=== PATIENT | female | born 1935 | race Two or more races ===

== ENCOUNTER 2024-03-11 08:43 | Inpatient (IN) | payer OTHER ==
[~2024-03-11] VITALS: Ht 149.9 cm; Wt 34.0 kg
--- NOTE | 2024-03-11 09:13 | NUR ---
SE RECIBE PACIENTE ALERTA Y ACTIVA EN COMPANIA DE PARA MEDICOS Y FAMILIAR LOS CULES REFIEREN TRAER A PACIENTE A CAUSA DE NAUSEAS Y VOMITOS. AL MOMENTO DE TRIAGE SE REALIZA JENNIFER DE VITALES, EKG Y SE PRESENTA A MD EN TURNO.
[2024-03-11 09:14] VITALS: BP 65/52
[2024-03-11] MEDS ORDERED: TOPROL XL25 M1 PO (09:18)
[2024-03-11] MEDS ORDERED: SYNTHROID75 MCG PO (09:18)
[2024-03-11] MEDS ORDERED: CHILDREN'S ASPI81 MG PO (09:19)
[2024-03-11] MEDS ORDERED: ATORVASTATIN CA20 MG PO (09:19)
[2024-03-11] MEDS ORDERED: ONDANSETRON HCL 2 MG/ML VIAL IV STA (09:32)
[2024-03-11] MEDS ORDERED: 0.9 % SODIUM CHLORIDE 1,000 ML IV SCH (09:45)
--- NOTE | 2024-03-11 09:55 | NUR ---
SE PASA PACIENTE A AREA DE CHEST PAIN A CAMA #18, SE CONECTA PACIENTE A MONITOR CARDIACO Y OXIMETRIA DE PULSO, AL MOMENTO PACIENTE SE ENCUENTRA CON B/P EN 43/55 SE INICIA PROCESO DE RAPID RESPOND. A LAS 10AM POR ORDEN MEDICA SE ADMINISTRA CHIQUITA AMPOLLETA DE ATROPINA, 10:10AM SE ADMINISTRA 2 AMPOLLETAS DE BICARBONATO, 10:13 SE INICIA PACIENTE EN LEVOPHED DE 8/250 DE D5W, 10:15 SE RECIBE PERSONAL DE TERAPIA LOS CUALES COLOCAN A PACIENTE EN BIPAP ANGIE ORDEN MEDICA.
[2024-03-11] MEDS ORDERED: SODIUM BICARBONATE 1 MEQ/ML DISP.SYRIN 50ML IV ONE (10:00)
[2024-03-11] MEDS ORDERED: NOREPINEPHRINE BITARTRATE 1 MG/ML AMPUL IV SCH (10:30)
[2024-03-11 10:48] LABS: ABG PH 7.092 (7.35-7.45)
[2024-03-11 10:49] LABS: ABG PO2 173.3 mmHg (80-100); ABG pCO2 12.7 mmHg (35-45); BASE EXCESS -23.7 mmol/l; BICARBONATE 3.8 mmol/l (23-25); SaO2 98.4 %; Tco2 4.2 mmol/l; allen test SATISFACTORY; puncture site RADIAL RIGHT
[2024-03-11 10:50] LABS: o2 28 %
[2024-03-11 11:34] LABS: HEMATOCRIT 25.6 % (36.0-45.00); MEAN CELL VOLUME 100.2 fL (80.00-100.00); MEAN CORPUSCULAR HEMOGLOBIN 32.4 pg (27.00-32.0); MEAN CORPUSCULAR HGB CONC 32.3 g/dl (32.0-36.0); PLATELET COUNT 140 K/uL (150-450); RED BLOOD COUNT 2.56 M/uL (4.00-6.00); RED CELL DISTRIBUTION WIDTH 15.3 % (11.5-14.5)
[2024-03-11 11:38] LABS: HEMOGLOBIN 8.3 g/dL (12.0-15.00)
[2024-03-11] MEDS ORDERED: CEFTRIAXONE SODIUM 2,000 MG VIAL IV SCH (11:49)
[2024-03-11] MEDS ORDERED: SODIUM BICARBONATE 50 MEQ in 0.9 % SODIUM CHLORIDE 1,000 ML IV SCH (12:00)
[2024-03-11 12:02] LABS: URINE APPEARANCE Cloudy; URINE BILIRRUBIN Small (NEGATIVE); URINE BLOOD Negative; URINE COLOR Dark Yellow; URINE GLUCOSE Negative (NEGATIVE); URINE KETONE Trace (NEGATIVE); URINE LEUKOCYTE Trace; URINE NITRATE Negative
[2024-03-11 12:07] LABS: URINE BACTERIA 227.6 uL (0.0-1933); URINE EPITHELIAL CELLS 23.2 uL (0.0-38.8); URINE RBC 34.1 uL (0.0-20.8); URINE WBC 22.1 uL (0.0-23.2)
[2024-03-11 12:10] LABS: INR 1.64; PARTIAL THROMBOPLASTIN TIME 39.5 SECONDS (22.0-34.0); PROTHROMBIN TIME 17.2 SECONDS (9.0-11.5)
[2024-03-11 12:14] LABS: ALBUMIN 1.5 gm/dL (3.4-5.0); BILIRUBIN TOTAL 0.71 mg/dL (0.3-1.2); CALCIUM 6.7 mg/dL (8.5-10.1); CREATININE SERUM 2.45 mg/dL (0.55-1.02); GFR 18.65; GLOBULINA 1.6 G/DL (2.4-3.5); POTASSIUM 3.9 mEq/L (3.5-5.1); TOTAL PROTEIN 3.1 gm/dL (6.4-8.2)
[2024-03-11 12:44] LABS: URINE PROTEIN 100 (NEGATIVE)
[2024-03-11 12:49] LABS: PHOSPHOROUS 8.3 mg/dL (2.5-4.9)
[2024-03-11 12:50] LABS: C-REACTIVE PROTEIN 1.11 MG/DL (0.00-0.29)
[2024-03-11 12:59] LABS: URINE CRYSTALS FEW /HPF
[2024-03-11] MEDS ORDERED: PIPERACILLIN/TAZOBACTAM SODIUM 2.25 GM VIAL IV STA (13:12)
[2024-03-11] MEDS ORDERED: PIPERACILLIN/TAZOBACTAM SODIUM 2.25 GM VIAL IV SCH (13:12)
[2024-03-11] MEDS ORDERED: RINGERS SOLUTION,LACTATED 1,000 ML IV SCH (13:15)
[2024-03-11] MEDS ORDERED: DEXTROSE 5% IV SCH (13:15)
[2024-03-11] MEDS ORDERED: FUROsemide 20 MG/2 ML VIAL IV PRN (13:15)
[2024-03-11] MEDS ORDERED: VASOPRESSIN IV SCH (13:15)
[2024-03-11] MEDS ORDERED: WATER IV SCH (13:15)
[2024-03-11] MEDS ORDERED: PANTOPRAZOLE SODIUM 40 MG/VIAL VIAL IV SCH (13:21)
[2024-03-11] MEDS ORDERED: NOREPINEPHRINE BITARTRATE 8 MG in DEXTROSE 5 % IN WATER 250 ML IV SCH (13:45)
[2024-03-11] MEDS ORDERED: VASOPRESSIN 20 UNITS in 0.9 % SODIUM CHLORIDE 250 ML IV SCH (13:45)
[2024-03-11] MEDS ORDERED: SODIUM BICARBONATE 50MEQ/50ML VIAL IV ONE ×2 (14:02→14:29)
[2024-03-11] MEDS ORDERED: SODIUM BICARBONATE 1 MEQ/ML DISP.SYRIN 50ML IV SCH (14:30)
--- NOTE | 2024-03-11 15:35 | NUR ---
SE RECIBE VISITA DE DR LICEA EL CUAL AL MOMENTO DA ORDEN DE MEDICAMENTOS. SE EJECUTAN ORDENES DE MEDICAMENTOS ANGIE ORDEN MEDICA Y BAJO MEDIDAS ASEPTICAS.
[2024-03-11] MEDS ORDERED: AA 4.25%/CAL/LYTES/DEXT 5% 1,000 ML PERIFERAL SCH (17:00)
[2024-03-11 17:42] VITALS: O2SAT 100
[2024-03-11] MEDS ORDERED: NA PHOS,M-B/NA PHOS,DI-BA 1 BOTTLE ENEMA RECTAL ONE (18:00)
[2024-03-11] MEDS ORDERED: ATROPINE SULFATE 0.1 MG/ML DISP.SYRIN IV STA (18:04)
[2024-03-11] MEDS ORDERED: HYDROCORTISONE SODIUM SUCC/PF 100 MG VIAL IV SCH (18:33)
[2024-03-12] MEDS ORDERED: PIPERACILLIN/TAZOBACTAM SODIUM 2.25 GM VIAL IV SCH
== END 2024-03-11 19:00 | disposition expired | DRG 391 ==
LOC: ER 08:43 → ICU-2 15:40
PROVIDERS: Emergency Medicine; ADMIT Internal Medicine; ATTEND Internal Medicine
PROC: 4A033R1 Measurement of Arterial Saturation, Peripheral, Percutaneous Approach (ICD-10-PCS; principal; 2024-03-11)
PROC: BW21ZZZ Computerized Tomography (CT Scan) of Abdomen and Pelvis (ICD-10-PCS; 2024-03-11)
PROC: B246ZZZ Ultrasonography of Right and Left Heart (ICD-10-PCS; 2024-03-11)
PROC: 05HC33Z Insertion of Infusion Device into Left Basilic Vein, Percutaneous Approach (ICD-10-PCS; 2024-03-11)
DX: K29.70 Gastritis, unspecified, without bleeding (principal); A41.9 Sepsis, unspecified organism; R65.21 Severe sepsis with septic shock; N17.9 Acute kidney failure, unspecified; E87.29 Other acidosis; N18.9 Chronic kidney disease, unspecified; D64.9 Anemia, unspecified; E78.5 Hyperlipidemia, unspecified; E03.9 Hypothyroidism, unspecified; F03.90 Unspecified dementia, unspecified severity, without behavioral disturbance, psychotic disturbance, mood disturbance, and anxiety; I95.9 Hypotension, unspecified; R00.1 Bradycardia, unspecified; K52.89 Other specified noninfective gastroenteritis and colitis; K56.41 Fecal impaction; Z66 Do not resuscitate; Z20.822 Contact with and (suspected) exposure to COVID-19